=== PATIENT | male | born 1995 | race Caucasian/White ===

== ENCOUNTER 2021-07-11 04:18 | Emergency (ER) | payer SELFPAY ==
[2021-07-11 04:28] VITALS: BP 137/79
== END 2021-07-11 11:03 | disposition left against medical advice (07) ==
LOC: ED 04:18
DX: R07.9 Chest pain, unspecified (principal); Z53.21 Procedure and treatment not carried out due to patient leaving prior to being seen by health care provider
CPT/HCPCS: 93005